=== PATIENT | male | born 1935 | race Caucasian/White ===

== ENCOUNTER → 2018-08-27 | Outpatient (CLI) | payer MEDICARE, OTHER, BC | LOC: M RAD 11:33 | DX: R20.2 Paresthesia of skin (principal); I99.8 Other disorder of circulatory system; G89.4 Chronic pain syndrome; R20.0 Anesthesia of skin; M79.652 Pain in left thigh; M79.662 Pain in left lower leg | CPT/HCPCS: 93925 ==

== ENCOUNTER 2021-01-29 22:22 | Observation (INO) | payer MEDICARE, OTHER ==
[~2021-01-29] VITALS: Ht 175.3 cm; Wt 54.9 kg
[2021-01-29] MEDS ORDERED: BREO1INH3 PO (22:35)
[2021-01-30] VITALS (7 sets, daily range): BP systolic 94–139; BP diastolic 52–67
[2021-01-30 00:04] LABS: RSV AMPLIFICATION NEGATIVE (NEGATIVE)
--- NOTE | 2021-01-30 00:12 | REPVR ---
PROCEDURE INFORMATION: Exam: CT Abdomen And Pelvis Without Contrast Exam date and time: 01/29/2021 11:16 PM Age: 85 years old Clinical indication: Abdominal pain; Localized; Right upper quadrant (ruq); Additional info: Incarcerated right inguinal hernia TECHNIQUE: Imaging protocol: Computed tomography of the abdomen and pelvis without contrast. Radiation optimization: All CT scans at this facility use at least one of these dose optimization techniques: automated exposure control; mA and/or kV adjustment per patient size (includes targeted exams where dose is matched to clinical indication); or iterative reconstruction. COMPARISON: No relevant prior studies available. FINDINGS: Lungs: Mild bibasilar bullous change with slight interstitial coarsening and minimal posterior right lower lobe infiltrate and atelectasis. Liver: There are some small hepatic cysts measuring up to 14 mm in the posteromedial right lobe. Gallbladder and bile ducts: Normal. No calcified stones. No ductal dilation. Pancreas: Normal. No ductal dilation. Spleen: Normal. No splenomegaly. Adrenal glands: Normal. No mass. Kidneys and ureters: Vascular calcifications are noted to extend into the renal sinuses. There appears to be a small nonobstructing calculus in the upper pole of the right kidney. Stomach and bowel: Suture line associated with the ascending colon consistent with partial resection and ileocolic anastomosis. There is a mild right inguinal hernia which contains a segment of small bowel with moderately prominent distention of the afferent small bowel segment measuring 4.9 cm in diameter with normal efferent segment. Much of the more proximal small bowel is not distended and only the short segment prior to entering the hernia is prominently distended. Appendix: No evidence of appendicitis. Intraperitoneal space: Unremarkable. No free air. No significant fluid collection. Vasculature: There is mild calcification of the abdominal aorta with extension into the iliac arteries. Lymph nodes: Unremarkable. No enlarged lymph nodes. Urinary bladder: Unremarkable as visualized. Reproductive: Unremarkable as visualized. Bones/joints: Left hip prosthesis in position. [id number] compression of T11-L5 with perhaps greatest compression at the L2 and L3 levels. Soft tissues: Unremarkable. IMPRESSION: 1. Mild right inguinal hernia with incarcerated short segment of small bowel with secondary obstruction and moderately prominent short segment distention of the afferent segment. 2. Mild bibasilar bullous change with slight interstitial coarsening and minimal posterior right lower lobe infiltrate and atelectasis. 3. Small nonobstructing calculus in the upper pole of the right kidney. 4. Status post partial ascending colectomy with ileocolic anastomosis. 5. There is some degree of compression from T11-L5 which appear to be chronic. Electronically signed by: Harrison Garcia On 01/30/2021 00:12:16 AM
[2021-01-30] MEDS ORDERED: BUPIVACAINE/EPIN 0.5% 30 ML VIAL As Ordered ONE (00:21)
[2021-01-30] MEDS ORDERED: fentaNYL 100 MCG/2 ML INJECTION (J3010) As Ordered ONE (00:23)
[2021-01-30] MEDS ORDERED: dexameTHASONE 4 MG/ML 1ML VIAL (J1100 PER 1MG) As Ordered ONE (00:23)
[2021-01-30] MEDS ORDERED: LIDOCAINE 2% 100MG/5ML SDV (FOR ANES.) As Ordered ONE (00:23)
[2021-01-30] MEDS ORDERED: ONDANSETRON 4MG/2ML VIAL As Ordered ONE (00:23)
[2021-01-30] MEDS ORDERED: SUGAMMADEX SODIUM 500 MG/5 ML VIAL (BRIDION) As Ordered ONE (00:23)
[2021-01-30] MEDS ORDERED: ROCURONIUM BROMIDE 50 MG/5 ML VIAL As Ordered ONE (00:24)
[2021-01-30] MEDS ORDERED: ePHEDrine SULFATE 25 MG/5 ML(5MG/ML) SYRINGE As Ordered ONE (00:24)
[2021-01-30] MEDS ORDERED: propofoL 200 MG/20 ML VIAL As Ordered ONE (00:24)
[2021-01-30] MEDS ORDERED: PHENYLephrine 500MCG 5ML (100MCG/ML) SYRINGE As Ordered ONE (00:24)
[2021-01-30] MEDS ORDERED: NS 1,000 ML IV SCH (00:27)
[2021-01-30] MEDS ORDERED: BISACODYL 10 MG SUPP PR PRN (00:30)
[2021-01-30] MEDS ORDERED: ONDANSETRON 4MG/2ML VIAL IV PRN ×2 (00:30→05:30)
[2021-01-30] MEDS ORDERED: NORCO, ANEXSIA 5/325MG TABLET (HYDROcodone/ACETAMINOPHEN) PO PRN ×2 (00:30)
[2021-01-30] MEDS ORDERED: KETOROLAC 30 MG/ML 1ML VIAL IV PRN (00:30)
[2021-01-30] MEDS ORDERED: ALBUTEROL SULFATE 2.5 MG/0.5 ML INH NEB SOLN NEB PRN (00:40)
--- NOTE | 2021-01-30 00:49 | HPEPDOC ---
[facility] [place] Medical History & Physical Date of Admission Jan 30, 2021 Date of Service: Jan 30, 2021 Attending Physician: NORA MILLS DO History and Physical TIME OF SERVICE: 1220am REASON FOR CONSULT: medical co-management CC: groin pain HISTORY OF PRESENT ILLNESS: This 85 yr old M was transferred from [facility] where he presented w c/o sharp right sided groin pain. Per the patient the was diagnosed with a right sided groin hernia and will be undergoing surgery tonight. The patient has had the hernia for several years but has avoided surgery because he had concerns about being intubated. REVIEW OF SYSTEMS: negative except as listed in HPI + poor appetite (per who is a the bedside) / denies feeling like he is more short of breath than usual PAST MEDICAL/ SURGICAL HISTORY: COPD Chronic O2 dependent respiratory failure on 2L of O2 (for 2 or 3 yrs) Osteoporosis / hx of T11-L5 compression fractures Anxiety Impaired vision (wears glasses) Dentures Resection of BCC Appendectomy Partial ascending colectomy with ileocolic anastomosis SOCIAL HISTORY: He smokes 1 PPD / and lives with his / has several grandchildren in [facility] (Gracy one of his grand-daughters is his healthcare proxy) FAMILY HISTORY: His daughter as a result of a clot after getting a lung transplant ALLERGIES: Please see below. HOME MEDICATIONS: Please see below. PHYSICAL EXAMINATION: Vital Signs Date Time Temp Pulse Resp B/P (MAP) Pulse Ox O2 Delivery O2 Flow Rate FiO2 01/29/21 22:30 123/61 01/29/21 23:00 97.9 20 GENERAL APPEARANCE: slim build / well developed / slightly anxious HEENT: NC in place / EOMI CARDIOVASCULAR: RRR/ NMRG LUNGS: is able to speak full sentences w/o stopping to take a breath / is using accessory muscles to breath / has prolonged expiratory phase / breath sounds are diminished ABDOMEN: flat / soft & NT MUSCULOSKELETAL: slim extremities INTEGUMENT: feet and lips are slightly cyanotic NEUROLOGICAL: CN 2-12 grossly intact PSYCHIATRIC: A&Ox 3 /able to understand and follow commands LABORATORY DATA: pending... IMAGING: CT abd/pelvis "IMPRESSION: 1. Mild right inguinal hernia with incarcerated short segment of small bowel with secondary obstruction and moderately prominent short segment distention of the afferent segment. 2. Mild bibasilar bullous change with slight interstitial coarsening and minimal posterior right lower lobe infiltrate and atelectasis. 3. Small nonobstructing calculus in the upper pole of the right kidney. 4. Status post partial ascending colectomy with ileocolic a nastomosis. 5. There is some degree of compression from T11-L5 which appear to be chronic. MICROBIOLOGY: Coronavirus (COVID-19)(PCR) NEGATIVE, Influenza Type A (RT-PCR) NEGATIVE, Influenza Type B (RT-PCR) NEGATIVE, Respiratory Syncytial Virus (PCR) NEGATIVE ASSESSMENT: is an 85 yr old w a hx of advanced COPD w pulmonary cachexia and chronic O2 dependent respiratory failure who will undergo surgery to manage an incarcerated right inguinal hernia; we were consulted for medical co-management. PLAN: 1 Incarcerated right inguinal hernia Plan: per primary Attending 2. Advanced COPD w chronic O2 dependent respiratory failure Despite using his accessory muscles, the patient denies feeling more short of breath than usual. The respiratory panel was neg Plan: continuous pulse ox / supplemental O2 / f/u VBG / duonebs Q6H w albuterol Q2H PRN via nebs pending extubation 3. Tobacco Abuse Plan: smoking cessation education 4. Pulmonary Cachexia His mentioned that his appetite has been poor Plan: recommend switching to COPD diet once extubated / may benefit from a solidworks drafter consult to recommend high protein foods +/- ensure 5. Osteoporosis Plan: start calcium w vitamin D / f/u w PCP to start/resume anti-resorptive therapy DVT px per primary Attending Thank you for consulting us, we will continue to follow the patient with you. Home Medications Scheduled Fluticasone/Vilanterol (Breo Ellipta 200-25 Mcg INH) 1 Each Blst.w.dev, 1 PUFF PO DAILY Allergies Coded Allergies: bee venom protein (honey bee) (Verified Allergy, Intermediate, unknown, 01/29/21) A-FIB/CHADSVASC A-FIB History Current/History of A-Fib/PAF?: No Current PO Anticoag Therapy: No LIANNE CARVALHO MD Jan 30, 2021 00:49
[2021-01-30 03:21] LABS: VENOUS BASE EXCESS -2.5 (-2.0-2.0); VENOUS HCO3 24.4 MEQ/L (23.0-27.0); VENOUS O2 SATURATION 70.1 % (60.0-80.0); VENOUS PARTIAL PRESSURE CO2 50.7 mmHg (38.0-50.0); VENOUS PARTIAL PRESSURE O2 39.3 mmHg (30.0-50.0); VENOUS PH 7.301 UNITS (7.330-7.430); VENOUS STANDARD HCO3 21.7 MEQ/L
[2021-01-30 03:24] LABS: BASO % 0.3 % (0.0-1.0); EOS # 0.1 10^3/uL (0.0-0.5); EOS % 0.5 % (0.0-3.0); HEMATOCRIT 43.7 % (42.0-52.0); HEMOGLOBIN 13.8 g/dl (13.5-17.5); LYMPH # 0.5 10^3/uL (1.5-5.0); LYMPH % 5.5 % (24.0-44.0); MEAN CORPUSCULAR HEMOGLOBIN 30.3 pg (27.0-33.0); MEAN CORPUSCULAR HGB CONC 31.6 g/dl (32.0-36.5); MONO # 0.4 10^3/uL (0.0-0.8); MONO % 4.1 % (2.0-8.0); NEUTROPHILS # 8.6 10^3/uL (1.5-8.5); NEUTROPHILS % 89.1 % (36.0-66.0); PLATELET COUNT, AUTOMATED 213 10^3/uL (150-450); RED BLOOD COUNT 4.55 10^6/uL (4.30-6.10); WHITE BLOOD COUNT 9.7 10^3/uL (4.0-10.0)
[2021-01-30 03:54] LABS: ALBUMIN 3.3 GM/DL (3.2-5.2); ALT/SGPT 9 U/L (12-78); BILIRUBIN,TOTAL 0.4 MG/DL (0.2-1.0); BLOOD UREA NITROGEN 21 MG/DL (7-18); CALCIUM LEVEL 9.4 MG/DL (8.8-10.2); CARBON DIOXIDE LEVEL 30 MEQ/L (21-32); CHLORIDE LEVEL 106 MEQ/L (98-107); CREATININE FOR GFR 0.68 MG/DL (0.70-1.30); GLOMERULAR FILTRATION RATE > 60.0 (>35); GLUCOSE, FASTING 136 MG/DL (70-100); POTASSIUM SERUM 4.2 MEQ/L (3.5-5.1); SODIUM LEVEL 140 MEQ/L (136-145); TOTAL PROTEIN 6.3 GM/DL (6.4-8.2)
[2021-01-30] MEDS ORDERED: LR 1,000 ML IV SCH (05:30)
[2021-01-30] MEDS ORDERED: fentaNYL 100 MCG/2 ML INJECTION (J3010) IV PRN (05:30)
[2021-01-30] MEDS: IPRATROPIUM 0.5MG/ALBUTEROL 2.5MG INH SOL UD 3ML (DUONEB) NEB SCH ×3 (07:27→20:48)
[2021-01-30] MEDS: ENOXAPARIN 40MG/0.4ML SYRINGE (J1650 PER 10MG) SC SCH (09:27)
[2021-01-30] MEDS: CALCIUM/VITAMIN D 500 MG TAB PO SCH ×3 (09:27→17:06)
[2021-01-30] MEDS: SENOKOT S TAB PO SCH ×2 (09:27→21:36)
--- NOTE | 2021-01-30 09:58 | IPN ---
PROGRESS NOTE DATE: 01/30/2021 SUBJECTIVE: Logan was admitted with incarcerated inguinal hernia and back from the operating room. He feels well. No chest pain or shortness of breath. He looks quite spry for just having had surgery. OBJECTIVE: VITAL SIGNS: Afebrile, vital signs stable, O2 saturation 92% on room air. GENERAL APPEARANCE: Alert, conversant, no distress. LUNGS: Clear. HEART: Regular rate and rhythm. ABDOMEN: Soft, nontender. No peripheral edema. LABS: Labs are all pending. IMPRESSION AND PLAN: 1. Incarcerated right inguinal hernia status post surgery last evening. Postoperative treatment per Dr. Pagan. 2. COPD. He uses 2 liters nasal cannula. Currently his O2 saturation is normal on room air. 3. Osteoporosis. Continue outpatient treatment upon discharge. Medically stable. Discharge when ready for surgery.
--- NOTE | 2021-01-30 12:06 | IPNPDOC ---
Text Note Date of Service The patient was seen on 01/30/21. NOTE No acute events since surgery. He feels great and wants to go home. He is amb ulating, and tolerating reg diet. No pain at all. VSSAF NAD abd - soft, nt, nd, incisions c/d/i, no mass or signs of seroma in the right groin. labs - below A) 85y/o male s/p RA repair of strangulated RIH P) reg diet PO pain control ambulate I plan on watching him until tomorrow to make sure that he does not develop a post-op ileus. If he is doing well in the am, then I plan to d/c home. Rodolfo Pagan DO VS,Jennifer, I+O VS, Jennifer, I+O Laboratory Tests 01/30/21 03:08 01/30/21 03:09 Vital Signs Date Time Temp Pulse Resp B/P (MAP) Pulse Ox O2 Delivery O2 Flow Rate FiO2 01/30/21 11:33 98.3 64 18 114/67 (83) 100 Nasal Cannula 2.0 I&O- Last 24 Hours up to 6 AM 01/30/21 05:59 Intake Total 1400 ml Output Total 125 ml Balance 1275 ml NORA PAGAN DO Jan 30, 2021 12:05
--- NOTE | 2021-01-30 12:35 | RO ---
OPERATIVE NOTE DATE OF OPERATION: 01/30/2021 PREOPERATIVE DIAGNOSIS: Strangulated right inguinal hernia. POSTOPERATIVE DIAGNOSIS: Strangulated right inguinal hernia. PROCEDURE: Robotic repair of strangulated right inguinal hernia. SURGEON: Noman Pagan DO MORALE OFFICER: None. ANESTHESIA: General. EBL: 5. COMPLICATIONS: None. INDICATIONS FOR PROCEDURE: The patient is an 85-year-old male who presents with large mass in the right groin which is non-reducible. Recommendation was to proceed with robotic repair of the hernia. Risks and benefits of the procedure not limited to but including bleeding, infection, hernia formation, hernia recurrence, damage to surrounding structures and need for further surgery were discussed in detail with the patient. Informed consent was obtained and the procedure was planned. DESCRIPTION OF PROCEDURE: The patient was brought back to operating room 7, after sufficient sedation the abdomen was sterilely prepped and draped. Time out was done confirming proper patient, proper procedure. Following that an incision was made in the left upper quadrant. Veress needle was inserted and abdomen was insufflated with 15 mmHg. Veress needle was removed and 8 mm Optiview port was used to gain access to the abdomen in the midline. Once midline port was in place the camera was inserted revealing a large defect in the right groin with a loop of small bowel that appeared pink on the outside, no other abnormalities. Two more 8 mm ports were placed, one in the left upper quadrant and one in the right upper quadrant. Robot was then docked to the ports. From then console the abdomen was examined. After careful manipulation I was finally able to reduce the loop of small intestine that was stuck down to hernia sac. Once it was out about half of the wall but with non-circumferential was purple and blotchy in appearance. It was not circumferential and did not appear to be completely ischemic, that was set to side. Horizontal incision was then made into the preperitoneal space. The hernia sac was then dissected free completely from the cord structures. Once it was completely dissected free it was everted. The defect in the peritoneum was closed with running 2-0 V-Loc suture incorporating the redundant hernia sac into the closure. Once this was completed the bowel was examined again, it had completely pinked back up to normal, it looked remarkably improved, there was no concern at all of any ischemic segments remaining. There were signs of some dilated loops, however, and potential for ileus. Otherwise, no concern for obstruction or perforation at this time. The abdomen was then desufflated. Ports were removed. Skin incisions were closed with 4-0 Vicryl subcuticular sutures. The abdomen was cleaned and dried. Steri-Strips, 4 x 4 and tape were applied. This ended the procedure.
--- NOTE | 2021-01-30 12:54 | HPE ---
HISTORY AND PHYSICAL DATE OF ADMISSION: 01/30/2021 CHIEF COMPLAINT: Right groin pain and swelling. HISTORY OF PRESENT ILLNESS: The patient is an 85-year-old male who was transferred to [facility] from [facility] after having an incarcerated, possibly strangulated, right inguinal hernia. They attempted multiple times to reduce this, but were unsuccessful, even under conscious sedation, so he was transferred here. He has had this hernia for at least three years that he has known about. He was told that he should not have any surgery due to his chronic COPD with the use of home oxygen. He has had multiple ER visits in [place] for this and they have been able to successfully reduce it every time. However, this time, he says that this is the largest and the worse that it has ever been and since they were unsuccessful, they brought him here. He had ice on during transport, as well as keeping his legs bent, however, there was no improvement. The ER physician and I both attempted to reduce it here once he arrived as well, but were unsuccessful. CT scan confirms that there is a loop of bowel in there that appears to be incarcerated, possibly strangulated. Therefore, the recommendation is to get him directly to the operating room for repair. PAST MEDICAL HISTORY: 1. Chronic obstructive pulmonary disease. 2. Osteoporosis. 3. Anxiety. 4. Hyperlipidemia. 5. Gastroesophageal reflux disease. PAST SURGICAL HISTORY: 1. Appendectomy. 2. Bilateral inguinal hernia repairs. 3. Partial hip replacement. ALLERGIES: Bee venom. HOME MEDICATIONS: Please see the medical record. REVIEW OF SYSTEMS: Pertinent positives and negatives as stated in the HPI. SOCIAL HISTORY: Denies drug or alcohol abuse. He does smoke one-half to one pack a day. PHYSICAL EXAMINATION: GENERAL: The patient is alert and oriented x3. No acute distress. VITAL SIGNS: Temperature 96.9, pulse 98, respirations 19, blood pressure 136/106, pulse oximetry 96% on 2 liters nasal cannula. HEENT: Pupils equally round and reactive to light and accommodation. HEART: S1, S2, regular rate and rhythm. LUNGS: Clear to auscultation bilaterally. ABDOMEN: Soft, scaphoid abdomen, large painful mass in the right groin, non reducible. No skin color changes. No palpable lesions in the left groin. EXTREMITIES: No clubbing, cyanosis, or edema. LABORATORY DATA: Not obtained at this time. IMAGING: CT abdomen and pelvis completed on route to the emergency room showed a mild right inguinal hernia with incarcerated short segment of small bowel with secondary obstruction and moderately prominent short segment distention of the afferent segment. ASSESSMENT AND PLAN: Patient is an 85-year-old male with possibly strangulated right inguinal hernia. RECOMMENDATIONS: The recommendation is to take him to the operating room for urgent repair. Risks and benefits of the procedure, not limited to, but including, bleeding, infection, hernia formation, hernia recurrence, damage to surrounding structures, and need for further surgery were discussed in detail with the patient and his . Consent was obtained and he was brought to the operating room for urgent procedure.
[2021-01-31] VITALS: BP 104/60
[2021-01-31] MEDS: IPRATROPIUM 0.5MG/ALBUTEROL 2.5MG INH SOL UD 3ML (DUONEB) NEB SCH ×2 (01:16→07:08)
[2021-01-31 04:00] VITALS: BP 119/64
[2021-01-31 07:13] VITALS: BP 140/68
[2021-01-31] MEDS: CALCIUM/VITAMIN D 500 MG TAB PO SCH ×2 (09:04→12:30)
[2021-01-31] MEDS: ENOXAPARIN 40MG/0.4ML SYRINGE (J1650 PER 10MG) SC SCH (09:04)
[2021-01-31] MEDS: SENOKOT S TAB PO SCH (09:04)
[2021-01-31 11:57] VITALS: BP 118/66
--- NOTE | 2021-01-31 12:43 | DSES ---
DISCHARGE SUMMARY DATE OF ADMISSION: 01/30/2021 DATE OF DISCHARGE: 01/31/2021 ADMISSION DIAGNOSIS: Strangulated right inguinal hernia. DISCHARGE DIAGNOSIS: Strangulated right inguinal hernia. HOSPITAL COURSE: The patient is an 85-year-old male who presented to the [facility] on Monday, which was the . He had an incarcerated, possibly strangulated herniated. They attempted to reduce it numerous times, but were unsuccessful. In the evening, they transferred him over here for me to evaluate. I saw him aright around midnight, was unable to reduce it as well and we admitted him just after midnight and brought him straight to the operating room for urgent hernia repair. He underwent a robotic reduction of the right inguinal hernia. Small bowel was ischemic, but it was reversible within about 20 minutes. While that was recovering, I was able to slightly repair his right inguinal hernia. No mesh was used due to concern for bacterial translocation. There was a large amount of bloody liquid within the hernia sac along side the bowel. However, I did reduce the hernia and the hernia sac completely and with the hopes of this reducing its chance of this returning soon. Postoperatively, he has been doing well. I saw him about 8 hours after surgery. He had no pains, no complaints doing well. Due to concern for potential ileus, I kept him overnight just to keep an eye on him. This morning he is still continuing to do well. His labs have been fine, vitals have been fine, tolerating diet, he is ambulating, he is urinating without any difficulties and has required zero pain medications during his stay. Plan is to be discharged home today. He will follow up in the office with me in about two weeks. All of his questions were answered; and if he has any questions, he will call the office.
--- NOTE | 2021-02-01 14:12 | IPN ---
PROGRESS NOTE DATE: 01/31/2021 SUBJECTIVE: Logan is seen in the progressive care unit (PCU). He still has not passed stool or flatus. He would like to go home, but it looks like he is still working on an ileus. PHYSICAL EXAMINATION: VITAL SIGNS: Stable. Afebrile. LUNGS: Clear. HEART: Regular rate and rhythm. ABDOMEN: Soft, nontender. Nondistended. EXTREMITIES: No peripheral edema. IMPRESSION: 1. Postoperative day #2. The patient is on the surgical service. The only thing holding his discharge is his ileus. 2. Chronic obstructive pulmonary disease (COPD). He is on oxygen 2 liters nasal cannula at home.
== END 2021-01-31 13:00 | disposition home or self-care (01) ==
LOC: M ED 22:22 → M ED INP 22:23 → M SDC 01-30 → M PCU 01-30 03:14 → M SDC 01-30 03:14 → M PCU 01-30 03:21 → UNDOADMOB 01-30 03:42 → UNDODISOB 01-31 13:00
PROVIDERS: ADMIT Surgery; ATTEND Surgery
DX: K40.30 Unilateral inguinal hernia, with obstruction, without gangrene, not specified as recurrent (principal); J44.9 Chronic obstructive pulmonary disease, unspecified; Z99.81 Dependence on supplemental oxygen; M81.0 Age-related osteoporosis without current pathological fracture; F41.9 Anxiety disorder, unspecified; F17.218 Nicotine dependence, cigarettes, with other nicotine-induced disorders; R64 Cachexia; Z91.030 Bee allergy status
CPT/HCPCS: 36415; 49650; 74176; 80047; 80053; 82803; 83605; 85025; 87631; 94640; 99284; G0378; J1100; J1650; J2370; J2405; J3010; S2900

== ENCOUNTER → 2021-08-26 | Outpatient (CLI) | payer MEDICARE, OTHER ==
[~2021-08-26] MED LIST: BREO1INH3 PO; INCR1INH INH
[2021-08-26 14:47] LABS: ABG BASE EXCESS -0.3 (-2.0-2.0); ABG HCO3 24.6 MEQ/L (22.0-26.0); ABG O2 SATURATION 94.8 % (95.0-99.0); ABG PARTIAL PRESSURE CO2 41.1 mmHg (35.0-45.0); ABG PARTIAL PRESSURE O2 70.9 mmHg (75.0-100.0); ABG STANDARD HCO3 24.2 MEQ/L (22.0-26.0); ABG TOTAL CO2 25.9 MEQ/L (23.0-31.0); ABG pH (ARTERIAL) 7.395 UNITS (7.350-7.450)
== END ==
LOC: M LAB 14:14
PROVIDERS: ATTEND Physician Assistant
DX: J43.1 Panlobular emphysema (principal); Z99.81 Dependence on supplemental oxygen

== ENCOUNTER → 2021-09-22 | Outpatient (CLI) | payer MEDICARE, OTHER ==
--- NOTE | 2021-09-22 14:06 | REP ---
INDICATION: ABNORMAL FINDING OF LUNG FIELD. COMPARISON: CXR 08/19/2021, 01/09/2020. TECHNIQUE: Noncontrast axial soft tissue and bone window settings with coronal and sagittal reconstructions provided. FINDINGS: Integrated Circ[employer] Inspector film show hyperinflation with flattened diaphragms. There is advanced bullous emphysematous changes with severe emphysema, greatest in the mid and upper lung zones. Bronchiectatic changes are noted. There is patchy atelectasis or infiltrate just above the right diaphragm posteriorly. As on the radiograph there is curvilinear irregular fibrotic density in the left upper lung zone stranding towards the left hilum and the anterior superior chest wall. This is retracting the left hilum upward. Peripheral pleural based thickening in this appearance is similar to that of the chest x-ray 08/19/2021 but new from 01/09/2020 radiograph. Whether this is pleural based mass with some spiculation and stranding towards the hilum or fibrosis with pleural thickening is uncertain. Pleural based density has a maximum thickness of 12 mm by 2.5 cm transverse by 3 cm vertical. Linear fibrotic changes in the right upper lobe with large below also seen. No pleural of the thickening or pleural based mass in the right upper lung zone. There is a smaller similar fibrotic the lesion or pleural based mass with stranding towards the left hilum more inferiorly in the left upper lobe. Left and right lower lobes were otherwise clear. No effusion. No calcified pleural plaques identified. The main, right and left pulmonary arteries are prominent in the mediastinum and hilum consistent with pulmonary artery hypertension, presumably on the basis of his COPD. The heart size not enlarged. There is no pericardial thickening or effusion. There are atherosclerotic calcifications of the aorta at the arch and descending portion. No pathologic sized mediastinal, hilar, axillary or supraclavicular adenopathy.Bones are demineralized. Superior endplate depressions at T3 and T4 as grade 1, grade 2-3 compression deformity of T5 and grade 1 compression deformities of T11 and T12 are seen. A grade 1-2 and grade 2 deformities of the superior endplates of L1 and L2 are noted. None of these shows paraspinal hematoma or evidence to suggest acuity. Visualized ribs grossly intact. Sternum, manubrium, visualized scapulae, glenohumeral joints and ribs are grossly intact. Been prior shoulder surgery on the right. The upper abdomen shows the liver not enlarged and has a few scattered hypodensities in the right and left lobe, the largest of these inferiorly in the right lobe with attenuation consistent with cyst at about 13 mm diameter. All the others are subcentimeter. Adrenal glands grossly intact. Kidneys show calcifications in renal arteries but no hydronephrosis in the upper poles nor any stones in the collecting system/kidneys. That portion of spleen included was unremarkable. That portion of pancreas, stomach and gallbladder included were also unremarkable. IMPRESSION: 1. Advanced COPD with bullous emphysematous changes in the upper lung zones and 2 areas in the left upper lobe with pleural based thickening or pleural based mass with stranding towards the hilum and bronchiectasis. Malignancy is not excluded the maximum thickness of the upper pleural of thickening is a 12 mm x 2.5 transverse by 3 cm vertical. Both mariah are retracted upward by scarring and retraction towards the peripheral pleura left greater than right. 2. No discrete nodules, pleural effusion or parenchymal mass there is some compressive the atelectatic change or fibrotic change above the left diaphragm posteriorly 3. Heart, mediastinal and hilar contours grossly intact there calcifications of the aorta without aneurysm. 4. Bones demineralized with multiple compression deformities in the thoracic and upper lumbar spine but no paraspinal hematomas or other findings that would suggest acuity of these fractures the other bony structures are intact. <Electronically signed by Gorge Henao > 09/22/21 [id number]
== END ==
LOC: M RAD 13:24
PROVIDERS: ATTEND Physician Assistant
DX: R91.8 Other nonspecific abnormal finding of lung field (principal); J43.9 Emphysema, unspecified; J47.9 Bronchiectasis, uncomplicated; J84.10 Pulmonary fibrosis, unspecified; I70.0 Atherosclerosis of aorta